=== PATIENT | female | born 1930 | race Caucasian/White ===

== ENCOUNTER 2019-01-07 20:54 | Inpatient (IN) | payer MEDICARE, BC ==
[~2019-01-07] VITALS: Ht 152.4 cm; Wt 49.9 kg
--- NOTE | 2019-01-07 21:10 | NUR ---
PT BIBRA C/O UPPER ABDOMINAL PAIN. PT DENIES NAUSEA, VOMITTING, DIARRHEA, DYSURIA. PT CURRENTLY NOT IN ANY PAIN. PT AAOX3. RESPIRATIONS EVEN AND UNLABORED. SKIN INTACT. NO ACUTE DISTRESS NOTED AT THIS TIME. WILL CONTINUE TO MONITOR
--- NOTE | 2019-01-07 22:00 | NUR ---
IV INITIATED RIGHT AC 18G. LABS DRAWN FROM SITE. CALLED LAB FOR METALLURGICAL ENGINEERING TECHNICIAN. IV INTACT AND PATENT, PLACED ON SALINE LOCK
--- NOTE | 2019-01-07 22:01 | NUR ---
DAUGHTER AT BEDSIDE. INFORMED PT WAS COMPLAINING OF CHEST PAIN AND SOB EARLIER TODAY, BUT CURRENTLY ASYMPTOMATIC.
[2019-01-07 22:47] LABS: BASOPHILS % (AUTO) 0.6 % (0.0-2.0); EOSINOPHILS % (AUTO) 3.8 % (0.0-6.0); HEMATOCRIT 37 % (33-45); HEMOGLOBIN 12.3 g/dL (11.5-14.8); LYMPHOCYTES # (AUTO) 1.3 /CMM (0.8-4.8); LYMPHOCYTES % (AUTO) 18.8 % (20.0-44.0); MEAN CORPUSCULAR HGB CONC 33 g/dl (31.0-36.0); MEAN CORPUSCULAR VOLUME 95 fL (82-100); MONOCYTES # (AUTO) 0.6 /CMM (0.1-1.30); MONOCYTES % (AUTO) 8.4 % (2.0-12.0); NEUTROPHILS # (AUTO) 4.8 /CMM (1.8-8.9); NEUTROPHILS % (AUTO) 68.4 % (43.0-81.0); PLATELET COUNT (AUTO) 266 /CMM (150-450); RED BLOOD CELL COUNT(AUTO) 3.93 MIL/uL (4.0-5.2); WHITE BLOOD COUNT (AUTO) 7.1 K/uL (4.3-11.0)
[2019-01-07 22:52] LABS: CALCIUM, SERUM 8.7 mg/dL (8.5-10.1); CARBON DIOXIDE 28 mmol/L (21-32); CHLORIDE 105 mmol/L (98-107); CREATININE 0.7 mg/dL (0.6-1.3); GLUCOSE 144 mg/dL (74-106); POTASSIUM 4.2 mmol/L (3.5-5.1); SODIUM SERUM 139 mmol/L (136-145); UREA NITROGEN, BLOOD 25 mg/dL (7-18)
--- NOTE | 2019-01-07 23:00 | NUR ---
RADIOLOGY AT BEDSIDE FOR CXR
--- NOTE | 2019-01-08 01:02 | NUR ---
GAVE REPORT TO KANDIS BUTTERFIELD FOR RODOLFO
--- NOTE | 2019-01-08 01:35 | NUR ---
OVENS SUPERVISORSKIVER HAND NOTES ADMITTED [facility] ER THIS 88 Y.O. FEMALE VIA NATHANAELRBARRETT,ACCOMPANIED BY DAUGHTER OSMAR,WITH CHIEF COMPLAINTS OF CHEST FEW HOURS SPOUTER.ALERT,ORIENTED X3,[facility]NOTED GENERALIZED SKIN DISCOLORATION BUT NO SKIN BREAKDOWN.PER PATIENT SHE WALKS WITH WALKER,NO HX OF FALLS WITH IN 30 DAYS,BUT PERVIOUS YEARS.SALINE LOCK RIGHT AC INTACT AND PATENT.WITH POLST PROVIDED BY DAUGHTER OSMAR,DNR STATUS.PATIENT CLAIMED NO CHEST PAIN UPON ARRIVAL ON THE UNIT.FALL PRECAUTION OBSERVED,BED ON LOWEST POSITION AND LOCK.CALL LIGHT IN REACH,NEEDS ANTICIPATED.
--- NOTE | 2019-01-08 01:45 | NUR ---
TRANSFERRED PT PER ACLS PROTOCOL
[2019-01-08 02:00] VITALS: BP 122/68
[2019-01-08 02:58] VITALS: BP 122/68
[2019-01-08] MEDS ORDERED: MORPHINE SULFATE INJ 2 MG/ML DISP.SYRIN IV PRN (03:00)
[2019-01-08] MEDS ORDERED: ZOLPIDEM TARTRATE 5 MG TABLET PO PRN (03:00)
[2019-01-08] MEDS ORDERED: MAGNESIUM HYDROXIDE 30 ML UDC PO PRN (03:00)
[2019-01-08] MEDS ORDERED: ONDANSETRON HCL/PF 4 MG/2 ML VIAL IVP PRN (03:00)
[2019-01-08] MEDS ORDERED: ACETAMINOPHEN 325 MG TABLET PO PRN (03:00)
[2019-01-08] MEDS ORDERED: HYDROCODONE/APAP 5/325MG 1 EACH TABLET PO PRN (03:00)
[2019-01-08] MEDS ORDERED: MAG HYDROX/AL HYDROX/SIMETH 30 ML UDC PO PRN (03:00)
[2019-01-08] MEDS ORDERED: Z GUARD REMEDY 2 OZ OINT TP PRN (03:00)
[2019-01-08] MEDS: IV NS 0.9% 1,000 ML IV PRN ×2 (03:46→16:55)
[2019-01-08 05:07] VITALS: BP 113/63
--- NOTE | 2019-01-08 06:17 | NUR ---
CRIME SCENE SPECIALIST NOTES FAIRLY RESTED,DENIES CHEST PAIN THIS TIME.IVF IN PROGRESS,REPOSITION PER PROTOCOL.CALL LIGHT IN REACH,NEEDS ANTICIPATED.WILL ENDORSE TO DAY NURSE FOR RODOLFO.
[2019-01-08 08:00] VITALS: BP 136/69
[2019-01-08] MEDS ORDERED: ACID1TAB12 PO (08:44)
[2019-01-08] MEDS ORDERED: CITA20TA16 PO (08:44)
[2019-01-08] MEDS ORDERED: TRAM50TA2 PO (08:44)
[2019-01-08] MEDS ORDERED: GUAI5SYR PO (08:44)
[2019-01-08] MEDS ORDERED: LOPE2CAP PO (08:44)
[2019-01-08] MEDS ORDERED: ACET-868 PO (08:44)
[2019-01-08] MEDS ORDERED: POLY17PO4 PO (08:44)
[2019-01-08] MEDS ORDERED: MELA3TAB PO (08:44)
[2019-01-08] MEDS ORDERED: POLY15DR40 EACHEYE (08:44)
[2019-01-08] MEDS ORDERED: CARB-93 PO (08:44)
[2019-01-08] MEDS ORDERED: LEVO75TA7 PO (08:44)
[2019-01-08] MEDS ORDERED: ASCO500T9 PO (08:44)
[2019-01-08] MEDS ORDERED: FERR325T24 PO (08:44)
[2019-01-08] MEDS ORDERED: CHOL100044 PO (08:44)
[2019-01-08] MEDS ORDERED: ASPI-1169 PO (08:44)
--- NOTE | 2019-01-08 08:57 | NUR ---
MS/RN S/B Dr Hicks Seen by Dr Hicks - chest pain non cardiac related, troponins negative, check 2D echo. US abdomen to evaluate possible ascites.
[2019-01-08 09:50] LABS: IRON, SERUM 65 ug/dl (50-175); TOTAL IRON BINDING CAPACITY 246 ug/dl (250-450)
[2019-01-08 09:58] LABS: ALANINE AMINOTRANSFERASE 12 U/L (12-78); ALBUMIN 2.9 g/dL (3.4-5.0); ALKALINE PHOSPHATASE 41 U/L (46-116); ASPARTATE AMINOTRANSFERASE 18 U/L (15-37); BILIRUBIN,TOTAL 0.3 mg/dL (0.2-1.0); CALCIUM, SERUM 8.3 mg/dL (8.5-10.1); CARBON DIOXIDE 28 mmol/L (21-32); CHLORIDE 107 mmol/L (98-107); CHOLESTEROL 188 mg/dL (<200); CREATININE 0.6 mg/dL (0.6-1.3); FERRITIN 53 ng/mL (8-388); GLUCOSE 88 mg/dL (74-106); HDL CHOLESTEROL 64 mg/dL (40-60); LDL 122 mg/dL (0-99); MAGNESIUM 1.6 mg/dL (1.8-2.4); PHOSPHORUS 3.6 mg/dL (2.5-4.9); POTASSIUM 4.3 mmol/L (3.5-5.1); SODIUM SERUM 141 mmol/L (136-145); THYROID STIMULATING HORMONE 3.168 uIU/mL (0.358-3.74); TOTAL PROTEIN, SERUM 5.6 g/dL (6.4-8.2); TRIGLYCERIDES 39 mg/dL (30-150); UREA NITROGEN, BLOOD 25 mg/dL (7-18)
--- NOTE | 2019-01-08 11:00 | NUR ---
MS/RN Abdo US Ultrasound shows no masses, ascities or evidence of cholelithiasis.
--- NOTE | 2019-01-08 11:21 | NUR ---
MS/RN S/B Piotr Blank CREDIT RELATIONSHIP MANAGER Seen by CREDIT RELATIONSHIP MANAGER - provided with daughter's number to call with update.
--- NOTE | 2019-01-08 14:00 | NUR ---
MS/RN 2D echo 2D echo carried out at bedside.
[2019-01-08 16:00] VITALS: BP 119/71
--- NOTE | 2019-01-08 18:22 | NUR ---
MS/RN End note Herbert's daughter at bedside and requesting to speak with MD to enable her to take mum home. Piotr Blank called X2, awaiting call back. All needs addressed, call light within reach, will continue to monitor and ensure safety.
--- NOTE | 2019-01-08 19:00 | NUR ---
MS RN NOTE RECEIVED PT IN STABLE CONDITION A&O X3, ABLE TO MAKE NEEDS KNOWN. DAUGHTER CURRENTLY AT BEDSIDE WAITING FOR MD TO CALL HER FOR POSS. D/C BACK TO ASSISTED LIVING. MESSAGED MD, AWAITING RETURN CALL. NO SIGNS OF SOB OR DISTRESS, NO C/O PAIN. BREATHING IS EVEN AND UNLABORED. ALL CURRENT NEEDS MET. SAFETY PRECAUTIONS IN PLACE: BED LOW, LOCKED, UPPER RAILS UP, AND CALL LIGHT WITHIN REACH. WILL CONT TO MONITOR.
[2019-01-08 20:00] VITALS: BP 110/54
[2019-01-08] MEDS ORDERED: TRAMADOL HCL 50 MG TABLET PO PRN (20:00)
[2019-01-08] MEDS ORDERED: GUAIFENESIN/D-METHORPHAN HB 5 ML UDC PO PRN (20:00)
[2019-01-08] MEDS ORDERED: POLYETHYLENE GLYCOL 3350 17 GM POWD.PACK PO PRN (20:00)
[2019-01-08] MEDS ORDERED: POLYVINYL ALCOHOL 15 ML BOTTLE OP PRN (20:30)
--- NOTE | 2019-01-09 06:36 | NUR ---
MS RN NOTE PT IN STABLE CONDITION A&O X3, ABLE TO MAKE NEEDS KNOWN. NO SIGNS OF SOB OR DISTRESS, NO C/O PAIN. BREATHING IS EVEN AND UNLABORED. ALL CURRENT NEEDS MET. SAFETY PRECAUTIONS IN PLACE: BED LOW, LOCKED, UPPER RAILS UP, AND CALL LIGHT WITHIN REACH. WILL CONT TO MONITOR AND ENDORSE TO NEXT SHIFT FOR RODOLFO.
[2019-01-09 07:12] LABS: BASOPHILS % (AUTO) 0.7 % (0.0-2.0); EOSINOPHILS % (AUTO) 3.6 % (0.0-6.0); HEMATOCRIT 33 % (33-45); HEMOGLOBIN 11.2 g/dL (11.5-14.8); LYMPHOCYTES # (AUTO) 1.4 /CMM (0.8-4.8); LYMPHOCYTES % (AUTO) 22.2 % (20.0-44.0); MEAN CORPUSCULAR HGB CONC 34 g/dl (31.0-36.0); MEAN CORPUSCULAR VOLUME 93 fL (82-100); MONOCYTES # (AUTO) 0.6 /CMM (0.1-1.30); MONOCYTES % (AUTO) 8.9 % (2.0-12.0); NEUTROPHILS # (AUTO) 4.1 /CMM (1.8-8.9); NEUTROPHILS % (AUTO) 64.6 % (43.0-81.0); PLATELET COUNT (AUTO) 239 /CMM (150-450); RED BLOOD CELL COUNT(AUTO) 3.56 MIL/uL (4.0-5.2); WHITE BLOOD COUNT (AUTO) 6.3 K/uL (4.3-11.0)
[2019-01-09] MEDS ORDERED: LEVOTHYROXINE SODIUM 75 MCG TABLET PO SCH (07:30)
--- NOTE | 2019-01-09 07:30 | NUR ---
m/s tapper helper: initial assessment received pt in bed awake, but sleepy. no c/o pain or any discomfort. pt with forgetfulness. reality orientation provided prn. instructed to call for assistance. will monitor.
[2019-01-09 07:37] LABS: CHOLESTEROL 200 mg/dL (<200); HDL CHOLESTEROL 62 mg/dL (40-60); LDL 131 mg/dL (0-99); TRIGLYCERIDES 73 mg/dL (30-150)
[2019-01-09 07:39] LABS: ALANINE AMINOTRANSFERASE 13 U/L (12-78); ALKALINE PHOSPHATASE 42 U/L (46-116); ASPARTATE AMINOTRANSFERASE 13 U/L (15-37); BILIRUBIN,TOTAL 0.4 mg/dL (0.2-1.0); CALCIUM, SERUM 8.5 mg/dL (8.5-10.1); CARBON DIOXIDE 25 mmol/L (21-32); CHLORIDE 106 mmol/L (98-107); CREATININE 0.5 mg/dL (0.6-1.3); GLUCOSE 89 mg/dL (74-106); MAGNESIUM 1.7 mg/dL (1.8-2.4); PHOSPHORUS 3.3 mg/dL (2.5-4.9); POTASSIUM 3.8 mmol/L (3.5-5.1); SODIUM SERUM 138 mmol/L (136-145); TOTAL PROTEIN, SERUM 5.7 g/dL (6.4-8.2); UREA NITROGEN, BLOOD 13 mg/dL (7-18)
[2019-01-09 08:00] VITALS: BP 126/76
--- NOTE | 2019-01-09 08:00 | NUR ---
m/s crane operator cab: notes daughter here and wants to take her home as soon as possible, stated, "i have a meeting at 0900, i want everything ready and i'm really upset about yesterday not seeing vargas all day, i want my mom discharge today." daughter is very adamant. cn aware. awaiting for md evaluation and order. ask dr. toussaint (cardio) to see pt and daughter.
--- NOTE | 2019-01-09 08:21 | NUR ---
m/s gardener florist: cardio f/u seen and examined by dr. toussaint at this time. daughter at bedside and updated plan of care. pt is clear for discharge under cardiac standpoint. daughter to come back and pick her up.
[2019-01-09] MEDS: Magnesium 1GM/D5W 100ML PREMIX 100 ML IV SCH ×2 (08:34→09:30)
[2019-01-09] MEDS ORDERED: ASPIRIN 81 MG TAB.CHEW PO SCH (09:00)
[2019-01-09] MEDS ORDERED: FERROUS SULFATE (325 MG) 325 MG/TAB TABLET PO SCH (09:00)
[2019-01-09] MEDS ORDERED: ACIDOPHILUS/BULGARICUS 1 EACH TAB.CHEW PO SCH (09:00)
[2019-01-09] MEDS ORDERED: CITALOPRAM HYDROBROMIDE 20 MG TABLET PO SCH (09:00)
[2019-01-09] MEDS ORDERED: CARBIDOPA/LEVODOPA 25/100 MG 1 UDTAB PO SCH (09:00)
[2019-01-09] MEDS ORDERED: ASCORBIC ACID 500 MG TABLET PO SCH (09:00)
[2019-01-09] MEDS ORDERED: CHOLECALCIFEROL 1,000 UNIT TABLET (VIT D3) PO SCH (09:00)
--- NOTE | 2019-01-09 09:30 | NUR ---
m/s maintenance machinist: notes pt refused full body assessment, stated, "i want to rest." pt aware for d'c home today. also offered to take photos prior to discharge on her skin discoloration, but pt refused. instructed to call for assistance. will continue to monitor.
--- NOTE | 2019-01-09 09:50 | NUR ---
m/s maple sugar maker: md visit seen by dr. dallas with order to d'c back to assisted living with daughter. 1 bag of magnesium completed. daughter brought clothes and in a hurry. per dr. dallas okay with 1 bag of magnesium, no new order received. pt getting ready. will monitor.
--- NOTE | 2019-01-09 10:00 | NUR ---
m/s industrial hygiene engineer: notes discharge instructions given to sveta (daughter) and verbalized understanding. h/l removed with tip intact. pt stable for discharge. all belongings and d'c papers given to daughter.
--- NOTE | 2019-01-09 10:30 | NUR ---
m/s supervisor education: discharged discharged home (assisted living) in stable condition accompanied by daughter with all valuables/belongings via private car.
[2019-01-09] MEDS ORDERED: Medication Not On Formulary EA (Melatonin 3 MG) PO SCH (18:00)
== END 2019-01-09 10:30 | DRG 884 ==
LOC: ER 21:02 → TELE 01-08 00:46 → MED 01-08 09:42
PROVIDERS: ADMIT Nurse Practitioner Acute Care
DX: F09 Unspecified mental disorder due to known physiological condition (principal); N17.0 Acute kidney failure with tubular necrosis; E44.0 Moderate protein-calorie malnutrition; R18.8 Other ascites; E03.9 Hypothyroidism, unspecified; E83.42 Hypomagnesemia; K76.0 Fatty (change of) liver, not elsewhere classified; R91.8 Other nonspecific abnormal finding of lung field; J84.10 Pulmonary fibrosis, unspecified; G20 Parkinson's disease; F32.9 Major depressive disorder, single episode, unspecified; Z68.21 Body mass index [BMI] 21.0-21.9, adult
CPT/HCPCS: 36415; 71045-TC; 76700-TC; 80048-TC; 80053-TC; 80061-TC; 82728-TC; 83540-TC; 83735-TC; 84100-TC; 84439-TC; 84443-TC; 84484-TC; 85025-TC; 85652-TC; 87081-TC; 93307-TC; G0378; J3475; J7030

== ENCOUNTER 2020-01-15 23:25 | Emergency (ER) | payer MEDICARE, BC ==
[~2020-01-15] VITALS: Ht 157.5 cm; Wt 66.2 kg
[~2020-01-15 23:25] MED LIST: ACET-868 PO; ACID1TAB12 PO; ASCO500T9 PO; ASPI-1169 PO; CARB-93 PO; CHOL100044 PO; CITA20TA16 PO; FERR325T24 PO; GUAI5SYR PO; LEVO75TA7 PO; LOPE2CAP PO; MELA3TAB41 PO; POLY15DR40 EACHEYE; POLY17PO4 PO; TRAM50TA2 PO
--- NOTE | 2020-01-15 23:30 | NUR ---
PT HERMINIA FROM [facility] C/O DRY COUGH. PT AFEBRILE ON ARRIVAL. O2 SAT 93% ON ROOM AIR, PLACED ON 2L NC AND TOLERATED WELL, O2 SAT NOW 99%. PT STATES "I FEEL WEIRD", DOES NOT SPECIFY. PT AWAKE, AAOX1. VITAL SIGNS STABLE. RESPIRATIONS EVEN AND UNLABORED. SKIN INTACT. NO ACUTE DISTRESS NOTED AT THIS TIME. PLACED ON MONITOR, WILL CONTINUE TO MONITOR
--- NOTE | 2020-01-15 23:45 | NUR ---
IV INITIATED LAC 18G. LABS DRAWN FROM SITE. IV INTACT AND PATENT, PLACED ON SALINE LOCK. FLU SWAB COLLECTED. CRM SPECIALIST AT BEDSIDE FOR COLLECTION.
[2020-01-15 23:52] LABS: BASOPHILS % (AUTO) 0.6 % (0.0-2.0); HEMATOCRIT 40 % (33-45); HEMOGLOBIN 13.2 g/dL (11.5-14.8); LYMPHOCYTES # (AUTO) 1.4 /CMM (0.8-4.8); LYMPHOCYTES % (AUTO) 21.8 % (20.0-44.0); MEAN CORPUSCULAR HGB CONC 33 g/dl (31.0-36.0); MEAN CORPUSCULAR VOLUME 93 fL (82-100); MONOCYTES # (AUTO) 0.5 /CMM (0.1-1.30); MONOCYTES % (AUTO) 8.1 % (2.0-12.0); NEUTROPHILS # (AUTO) 4.1 /CMM (1.8-8.9); NEUTROPHILS % (AUTO) 66.5 % (43.0-81.0); PLATELET COUNT (AUTO) 264 /CMM (150-450); RED BLOOD CELL COUNT(AUTO) 4.35 MIL/uL (4.0-5.2); WHITE BLOOD COUNT (AUTO) 6.2 K/uL (4.3-11.0)
--- NOTE | 2020-01-16 | NUR ---
RADIOLOGY AT BEDSIDE FOR CXR
[2020-01-16 00:01] LABS: CALCIUM, SERUM 8.9 mg/dL (8.5-10.1); CARBON DIOXIDE 30 mmol/L (21-32); CHLORIDE 103 mmol/L (98-107); CREATININE 0.7 mg/dL (0.6-1.3); GLUCOSE 139 mg/dL (74-106); POTASSIUM 3.9 mmol/L (3.5-5.1); SODIUM SERUM 139 mmol/L (136-145); UREA NITROGEN, BLOOD 12 mg/dL (7-18)
[2020-01-16 00:13] LABS: ALANINE AMINOTRANSFERASE 20 U/L (12-78); ALBUMIN 3.6 g/dL (3.4-5.0); ALKALINE PHOSPHATASE 62 U/L (46-116); ASPARTATE AMINOTRANSFERASE 18 U/L (15-37); B-TYPE NATRIURETIC PEPTIDE 515 PG/ML (0-125); BILIRUBIN,DIRECT 0.1 mg/dL (0.0-0.2); BILIRUBIN,TOTAL 0.4 mg/dL (0.2-1.0); TOTAL PROTEIN, SERUM 6.9 g/dL (6.4-8.2)
[2020-01-16] MEDS ORDERED: FUROSEMIDE 40 MG/4 ML VIAL ONE (00:58)
[2020-01-16] MEDS ORDERED: FUROSEMIDE 40 MG/4 ML VIAL IV ONE (01:00)
--- NOTE | 2020-01-16 01:24 | NUR ---
CALLED [facility] FOR TRANSPORTATION. ETA [id number]
--- NOTE | 2020-01-16 02:35 | NUR ---
REPORT GIVEN TO [facility] FOR TRANSPORTATION RODOLFO
--- NOTE | 2020-01-16 02:41 | NUR ---
NOTED HYPERTENSION, MD AWARE. PER VERBAL MD ORDER, WILL ADMINISTER CLONIDINE 0.1MG PO X1 NOW.
[2020-01-16] MEDS ORDERED: CLONIDINE HCL 0.1 MG TABLET ONE (02:42)
[2020-01-16] MEDS ORDERED: hydrALAZINE HCL IV 20 MG VIAL ONE (02:49)
--- NOTE | 2020-01-16 02:50 | NUR ---
PT UNABLE TO TOLERATE DRINKING WATER. PER VERBAL MD ORDER, WILL ADMINISTER HYDRALAZINE 10MG IV X1 NOW.
--- NOTE | 2020-01-16 03:14 | NUR ---
PT TRANSFERRED TO [facility] S[facility]. VITAL SIGNS STABLE. NO ACUTE DISTRESS NOTED AT THIS TIME
[2020-01-16] MEDS ORDERED: hydrALAZINE HCL IV 20 MG VIAL IV ONE (03:30)
[2020-01-16] MEDS ORDERED: CLONIDINE HCL 0.1 MG TABLET PO ONE (03:30)
[2020-01-16 03:34] VITALS: BP 129/74
== END 2020-01-16 03:14 | disposition home or self-care (01) ==
LOC: ER 23:27
DX: J81.1 Chronic pulmonary edema (principal); I10 Essential (primary) hypertension; G30.9 Alzheimer's disease, unspecified; F02.80 Dementia in other diseases classified elsewhere, unspecified severity, without behavioral disturbance, psychotic disturbance, mood disturbance, and anxiety; E03.9 Hypothyroidism, unspecified; Z88.8 Allergy status to other drugs, medicaments and biological substances; Z88.9 Allergy status to unspecified drugs, medicaments and biological substances; Z79.899 Other long term (current) drug therapy
CPT/HCPCS: 36415; 71045; 80048; 80076; 83605; 83880; 84484; 85025; 85730; 87040 ×2; 87804 ×2; 93005; 96374; 96375; 99285; J0360; J1940